=== PATIENT | male | born 1960 | race Caucasian/White ===

== ENCOUNTER 2021-06-09 10:16 | Emergency (ER) | payer OTHER ==
[~2021-06-09] VITALS: Ht 165.1 cm; Wt 63.5 kg
[2021-06-09] MEDS ORDERED: AMITRIPTYLINE H10 M1 PO (10:27)
[2021-06-09] MEDS ORDERED: HIGH BP MED (10:27)
[2021-06-09 11:01] LABS: ABSOLUTE BASOPHILS 0.1 thou/uL (0.0-0.2); ABSOLUTE EOSINOPHILS 0.6 thou/uL (0.0-0.7); ABSOLUTE LYMPHOCYTES 2.8 thou/uL (0.8-5.3); ABSOLUTE MONOCYTES 0.6 thou/uL (0.0-1.2); ABSOLUTE NEUTROPHILS 6.7 thou/uL (1.6-8.1); BASOPHILS 1.3 %; EOSINOPHILS 5.7 %; HEMOGLOBIN 15.1 gm/dL (14.0-18.0); LYMPHOCYTES 25.9 %; MCH 30.3 pg (26.0-34.0); MCHC 34.4 g/dL (28.0-37.0); MCV 88.2 fL (80.0-100.0); MONOCYTES 5.8 %; MPV 7.5 fl. (7.2-11.1); NUCLEATED RBCS 0 /100WBC; PLATELET COUNT* 367 thou/uL (150-400); POLYS 61.3 %; RBC 4.99 mil/uL (4.50-6.00); RDW-CV 14.1 % (10.5-14.5)
[2021-06-09 11:10] LABS: CALCIUM 8.4 mg/dL (8.5-10.1); POTASSIUM 4.5 mmol/L (3.5-5.1)
[2021-06-09 11:13] LABS: ALBUMIN 3.3 g/dL (3.4-5.0); TOTAL BILIRUBIN 0.4 mg/dL (<0.1-1.0); TOTAL PROTEIN 6.9 g/dL (6.4-8.2)
[2021-06-09 11:32] LABS: PCO2 31.8 mmHg (35.0-45.0); PO2 84.6 mmHg (75.0-100.0)
[2021-06-09 12:21] VITALS: BP 155/94
--- NOTE | 2021-06-09 16:08 | EKG ---
[place] [address] ELECTROCARDIOGRAM REPORT Name: MANNRADHA Sims Room: [facility]#: [id number] Admission: 06/09/21 Attend Phys: Discharge: 06/09/21 Date of : 56 Date of Service: 06/09/21 1105 Report #: [id number] THIS REPORT FOR: //name// [facility] ED Test Date: 2021-06-09 Test Time: 11:05:17 Pat Name: RADHA DARNELL Department: Room: Gender: Salon Manager: : 1960 Requested By: Ventura Aguila Order Number: [id number] MD: Ean Wong Measurements Intervals [place] Rate: 59 P: 67 ND: 126 QRS: 63 QRSD: 88 T: 53 QT: 409 QTc: 406 Interpretive Statements Sinus rhythm Low voltage, extremity leads Anteroseptal infarct, old No previous ECG available for comparison Electronically Signed On 06-09-2021 16:08:33 CDT by Ean Wong [email or web address] <ELECTRONICALLY SIGNED> By: Ean Wong MD, [facility] 06/09/21 1608 1105 1105 Ean Wong MD, [facility] /EPI
== END 2021-06-09 12:21 | disposition home or self-care (01) ==
LOC: M.ERS 10:16
PROVIDERS: Physician Assistant
DX: N28.89 Other specified disorders of kidney and ureter (principal); T58.91XA Toxic effect of carbon monoxide from unspecified source, accidental (unintentional), initial encounter; R42 Dizziness and giddiness; I10 Essential (primary) hypertension; X58.XXXA Exposure to other specified factors, initial encounter